=== PATIENT | male | born 1975 | race Caucasian/White ===

== ENCOUNTER 2017-10-26 23:32 | Emergency (ER) | payer OTHER ==
[2017-10-27 02:39] VITALS: BP 130/79
== END 2017-10-27 02:39 | disposition home or self-care (01) ==
LOC: ED 23:32
DX: S01.111A Laceration without foreign body of right eyelid and periocular area, initial encounter (principal); Y04.0XXA Assault by unarmed brawl or fight, initial encounter
CPT/HCPCS: 90715; J1885; J2001